=== PATIENT | male | born 1955 | race Caucasian/White ===

== ENCOUNTER 2016-09-10 07:05 | Day surgery (SDC) | payer OTHER ==
[~2016-09-10] VITALS: Ht 170.2 cm; Wt 62.8 kg
[2016-09-10 07:37] VITALS: Ht 170.2 cm; Wt 62.8 kg
[2016-09-10 07:48] VITALS: BP 107/60; PULSE 58; RESP 18
[2016-09-10] MEDS ORDERED: FENTAnyl 50 MCG/ML VIAL ONE (08:56)
[2016-09-10] MEDS ORDERED: MIDAZOLAM 1 MG/ML 2 ML INJ ONE ×2 (08:56)
[2016-09-10 09:10] VITALS: BP 92/66; RESP 18
[2016-09-10 09:20] VITALS: BP 126/65; RESP 20
--- NOTE | 2016-09-11 08:45 | GILP ---
DATE OF PROCEDURE: 09/10/2016 PROCEDURE PERFORMED: 1. Esophagogastroduodenoscopy and biopsy. 2. Colonoscopy. SURGEON: Bonita Cabrera MD PREOPERATIVE DIAGNOSES: 1. Abdominal pain. 2. Screening colonoscopy. POSTOPERATIVE DIAGNOSES: 1. Hiatal hernia. 2. Gastroesophageal reflux disease. 3. Gastritis with erosions. 4. Gastric mucosal biopsies were taken for H. pylori test. 5. Colonoscopy all the way to the cecum. 6. Internal hemorrhoids. 7. No colon neoplasm was identified. INDICATION: Mr. Andrade Flores is a 61-year-old male patient who had upper abdominal pain, not responding to therapy. The patient also needed a screening colonoscopy. The procedure and possible complications were well explained to the patient. The patient understood and consented to the procedures. DESCRIPTION OF PROCEDURE: Under the influence of fentanyl and Versed, the gastroscope was carefully introduced into the esophagus, and under direct vision it was advanced to the stomach, to the pylorus, the duodenal bulb, and descending duodenum. Findings: Esophagus: The patient had a hiatal hernia and gastroesophageal reflux disease. Stomach: He had gastritis with erosions. Gastric mucosal biopsies were taken for H. pylori test. Duodenum was normal. The colonoscope was carefully introduced in the rectum and under direct vision it was advanced all the way to the cecum. Findings: The patient had internal hemorrhoids. No colon neoplasm was identified. He tolerated the procedures very well. There were no complications from the procedures. At the end of procedures, he was awake, with stable vital signs. He was discharged home to the care of his family. Week after family. IMPRESSION: Please see postop diagnoses. PLAN: 1. Omeprazole 40 mg p.o. q. a.m. 2. Await H. pylori test report. 3. Next screening colonoscopy in 10 years. Dictated By: MD ROCAEL Phan/isaias/joshua /Document#: [id number]
== END 2016-09-10 10:48 | disposition home or self-care (01) ==
LOC: GIL 07:05
PROVIDERS: ATTEND Internal Medicine Gastroenterology
DX: Z12.11 Encounter for screening for malignant neoplasm of colon (principal); K21.9 Gastro-esophageal reflux disease without esophagitis; K29.60 Other gastritis without bleeding; K44.9 Diaphragmatic hernia without obstruction or gangrene; K64.8 Other hemorrhoids; B96.81 Helicobacter pylori [H. pylori] as the cause of diseases classified elsewhere
CPT/HCPCS: 43239; 45378; 87081; J2250; J3010; Z7610